=== PATIENT | female | born 1975 | race Hispanic/Latino ===

== ENCOUNTER 2022-06-21 08:04 | Emergency (ER) | payer OTHER, SELFPAY ==
--- NOTE | 2022-06-21 08:15 | ED.URI ---
HPI - URI/Sore Throat General Chief Complaint: Upper Respiratory Infection Stated Complaint: Sore throat, coughing, sneezing Time Seen by Provider: 06/21/22 08:19 Source: patient and RN notes reviewed Mode of arrival: ambulatory Limitations: no limitations History of Present Illness HPI Narrative: 47 y/o female presented for c/o dry cough, sore throat, sinus drainage for one week. Temp at home 2 days ago 101. She did not test for covid. Taking multiple otc meds for symptoms states I have been drinking them. BP is elevated upon arrival, pt states she took her home bp meds. Denies chest pain, palpitations, dizziness, shortness of breath, wheezing, nausea, vomiting or fatigue. Denies sick contacts. MD elicited complaint: cough Related Data Home Medications Medication Instructions Recorded Confirmed amlodipine 10 mg tablet 10 mg DAILY 06/21/22 06/21/22 aspirin 81 mg chewable tablet 81 mg DAILY 06/21/22 06/21/22 calcium carbonate 600 mg-vitamin 1 tablet PO DAILY 06/21/22 06/21/22 D3 10 mcg (400 unit) tablet clonidine HCl 0.2 mg tablet 0.2 mg DAILY 06/21/22 06/21/22 dulaglutide 1.5 mg/0.5 mL mg subcut WEEKLY 06/21/22 subcutaneous pen injector (Trulicity) hydralazine 25 mg tablet 25 mg DAILY 06/21/22 06/21/22 metformin 1,000 mg tablet 1,000 mg DAILY 06/21/22 06/21/22 metoprolol succinate 25 mg 25 mg PO DAILY 06/21/22 06/21/22 tablet,extended release 24 hr multivitamin with folic acid 400 1 tablet PO DAILY 06/21/22 06/21/22 mcg tablet (Daily-Katelyn (with folic acid)) nystatin 100,000 unit/gram topical topical DAILY 06/21/22 cream potassium chloride 10 mEq 10 meq PO DAILY 06/21/22 06/21/22 tablet,extended release Allergies Allergy/AdvReac Type Severity Reaction Status Date / Time No Known Allergies Allergy Unverified 05/19/18 21:34 Review of Systems Review of Systems: CONSTITUTIONAL: Endorses malaise, chills, fever EYES: Denies visual changes, redness, or discharge ENT: Reports rhinorrhea, congestion, sinus pain, sore throat CARDIOVASCULAR: Denies chest pain, palpitations, edema RESPIRATORY: Reports cough, post nasal drainage. Denies dyspnea GASTROINTESTINAL: Denies abdominal pain, nausea, vomiting, diarrhea SKIN: Denies rash or itching MUSCULOSKELETAL: denies myalgia Exam Narrative: GENERAL: Ill-appearing, nontoxic EYES: conjunctivae clear ENT: Mucous membranes moist. TM pearly dunaway with dull light reflex bilaterally; no tragal tenderness. Oropharynx erythematous without lesions or exudate, no drooling, no hoarseness, no trismus, uvula midline. CHEST: Clear to auscultation, breath sounds equal. No wheezing, rhonchi, rales, or stridor. No respiratory distress, speaks in full sentences. HEART: Regular rate and rhythm. No murmur heard. SKIN: Warm, dry, no rash. NEURO: Alert and oriented x3. PSYCH: Normal mood and affect Course Course Emergency Course: Patient is aware of diagnosis, understands and agrees to treatment plan. Anticipatory guidance given. Patient agrees to follow-up as directed and is aware of reasons to seek care at the emergency department. Portions of this record may have been created with voice recognition software Level of Care: Express Care Visit Vital Signs Vital signs: Vital Signs Temperature 97.7 F 06/21/22 08:16 Pulse Rate 79 06/21/22 08:16 Respiratory Rate 18 06/21/22 08:16 Blood Pressure 212/98 H 06/21/22 08:16 Pulse Oximetry 100 06/21/22 08:16 Oxygen Delivery Room Air 06/21/22 08:16 Temperature 97.7 F 06/21/22 08:16 Pulse Rate 79 06/21/22 08:16 Respiratory Rate 18 06/21/22 08:16 Blood Pressure 216/105 H 06/21/22 08:55 Pulse Oximetry 100 06/21/22 08:16 Oxygen Delivery Room Air 06/21/22 08:16 reviewed MDM - URI/Sore Throat MDM Narrative Medical decision making narrative: Covid positive, result reviewed with pt. advised supportive measures for covid and signs/symptoms to go to the ER. BP rechecked and remains latoya
[2022-06-21 08:16] VITALS: BP 212/98; PULSE 79; RESP 18; TEMP 36.5; O2SAT 100
[2022-06-21 08:55] VITALS: BP 216/105
--- NOTE | 2022-06-21 08:55 | PC.NURSE ---
Rechecked pt's BP and it remains high. [facility] [employer] aware and is speaking with pt. Pt states that she has a BP cuff at home and will check her BP again and then follow up with her PCP if needed since she is asymptomatic.
== END 2022-06-21 09:04 | disposition home or self-care (01) ==
PROVIDERS: Emergency Provider Nurse Practitioner Family
DX: U07.1 COVID-19 (principal)
CPT/HCPCS: 87426; 99213; C9803; G0463

== ENCOUNTER 2022-12-23 16:42 | Emergency (ER) | payer OTHER, SELFPAY ==
--- NOTE | 2022-12-23 16:49 | ED.SKABFB ---
HPI - Skin/Abscess/Foreign Bdy General Chief complaint: Skin/Abscess/Foreign Body Stated complaint: boil on back Source: patient and RN notes reviewed History of Present Illness HPI narrative: 47 yo F presents to urgent care with complaints of a boil on her back. Pt states she felt a pimple in the area this past Sunday and when she squeezed it, pus came out. Pt states she now has a bigger bump in the area that is painful. Denies any fevers, chills, numbness, tingling, or vomiting. Pt also noted to be hypertensive in clinic. Pt reports chronic HTN that she is still being evaluated for. Pt states she takes her daily BP meds without fail and continues to be high. Pt states she is scheduled to have tests done this week on her liver to evaluate other possible causes to her HTN. Denies any chest pain, SOB, dizziness, CHANCE, or visual disturbance. Related Data Home Medications Medication Instructions Recorded Confirmed amlodipine 10 mg tablet 10 mg DAILY 06/21/22 12/23/22 aspirin 81 mg chewable tablet 81 mg DAILY 06/21/22 12/23/22 calcium carbonate 600 mg-vitamin 1 tablet PO DAILY 06/21/22 12/23/22 D3 10 mcg (400 unit) tablet clonidine HCl 0.2 mg tablet 0.2 mg DAILY 06/21/22 12/23/22 dulaglutide 1.5 mg/0.5 mL 1.5 mg subcut WEEKLY 06/21/22 12/23/22 subcutaneous pen injector (Trulicity) metformin 1,000 mg tablet 1,000 mg DAILY 06/21/22 12/23/22 multivitamin with folic acid 400 1 tablet PO DAILY 06/21/22 12/23/22 mcg tablet (Daily-Katelyn (with folic acid)) nystatin 100,000 unit/gram topical 1 applic topical DAILY 06/21/22 12/23/22 cream potassium chloride 10 mEq 10 meq PO DAILY 06/21/22 12/23/22 tablet,extended release atorvastatin 80 mg tablet 80 mg PO DAILY 12/23/22 12/23/22 clopidogrel 75 mg tablet 75 mg PO DAILY 12/23/22 12/23/22 furosemide 40 mg tablet 40 mg PO DAILY 12/23/22 12/23/22 hydralazine 50 mg tablet 50 mg PO DAILY 12/23/22 12/23/22 losartan 100 mg tablet 100 mg PO DAILY 12/23/22 12/23/22 magnesium oxide 400 mg (241.3 mg 400 mg PO DAILY 12/23/22 12/23/22 magnesium) tablet metoprolol succinate 50 mg 50 mg PO DAILY 12/23/22 12/23/22 tablet,extended release 24 hr triamterene 37.5 1 cap PO DAILY 12/23/22 12/23/22 mg-hydrochlorothiazide 25 mg capsule Allergies Allergy/AdvReac Type Severity Reaction Status Date / Time No Known Allergies Allergy Verified 12/23/22 16:48 Review of Systems Review of Systems: CONSTITUTIONAL: Denies fever, chills, or sweats. EYES: Denies visual changes, redness, or discharge. ENT: Denies otalgia and sore throat CARDIOVASCULAR: Denies chest pain, palpitations, or edema. RESPIRATORY: Denies cough or dyspnea. GASTROINTESTINAL: Denies abdominal pain, nausea, vomiting, or diarrhea. GENITOURINARY: Denies dysuria or hematuria. SKIN: Reports a boil on her back. MUSCULOSKELETAL: Denies back pain, joint pain, or myalgia. NEUROLOGIC: Denies headache, numbness, or weakness. PMFSH Comments At the time of my signature, I reviewed and agree with the nursing past medical, surgical, social, and family history. There is no relevant family history pertinent to the patient complaint. Exam Narrative: GENERAL: This is a well-nourished, well-developed patient, in no apparent distress. HEAD: normocephalic, atraumatic. EYES: PERRL. Sclera clear/white. Vision is grossly intact. EARS: External ears normal, auditory canals clear and without drainage, TMs normal without perforation. Hearing grossly intact. NOSE: External nose normal with no obvious nasal discharge, nares without redness, no rhinorrhea. THROAT: Mucous membranes moist, posterior pharynx clear. NECK: Neck supple, non-tender without lymphadenopathy, masses or thyromegaly. CARDIOVASCULAR: Regular rate and rhythm without murmurs, gallops, or rubs. RESPIRATORY: Clear to auscultation. Breath sounds equal bilaterally. No wheezes, rales, or rhonchi. GASTROINTESTINAL: Abdomen soft, non-tender, nondistended. Bowel sounds a
[2022-12-23 16:52] VITALS: BP 193/102; PULSE 86; RESP 16; TEMP 37.3; O2SAT 98
[2022-12-23 16:55] VITALS: BP 193/102; PULSE 86; RESP 16; TEMP 37.3; O2SAT 98
== END 2022-12-23 17:15 | disposition home or self-care (01) ==
PROVIDERS: Emergency Provider Nurse Practitioner Family
DX: L02.212 Cutaneous abscess of back [any part, except buttock and flank] (principal); I10 Essential (primary) hypertension; E78.00 Pure hypercholesterolemia, unspecified; E11.9 Type 2 diabetes mellitus without complications; I25.10 Atherosclerotic heart disease of native coronary artery without angina pectoris; Z95.5 Presence of coronary angioplasty implant and graft; Z79.82 Long term (current) use of aspirin
CPT/HCPCS: 99213; G0463

== ENCOUNTER 2023-12-07 09:52 | Emergency (ER) | payer OTHER, SELFPAY ==
[2023-12-07 10:05] VITALS: BP 264/122; PULSE 105; RESP 20; TEMP 37.3; O2SAT 100
[2023-12-07 10:06] VITALS: BP 233/122; PULSE 105; RESP 16; TEMP 37.3; O2SAT 100
[2023-12-07 10:15] VITALS: BP 260/140; PULSE 105; RESP 20
--- NOTE | 2023-12-07 10:15 | ED.URI ---
HPI - URI/Sore Throat General Chief Complaint: Upper Respiratory Infection Stated Complaint: runny nosee throat hurts Time Seen by Provider: 12/07/23 10:00 Source: patient Mode of arrival: ambulatory Limitations: no limitations History of Present Illness HPI Narrative: 48-year-old female with history of hypertension presents with complaint of sinus congestion and pressure for 2 days. No other symptoms today. Patient's blood pressure elevated in triage. Denies chest pain and shortness of breath. Has not missed any doses of her blood pressure medications. All systems reviewed and negative except as noted above. Related Data Home Medications Medication Instructions Recorded Confirmed amlodipine 10 mg tablet 10 mg DAILY 06/21/22 12/23/22 aspirin 81 mg chewable tablet 81 mg DAILY 06/21/22 12/23/22 calcium carbonate 600 mg-vitamin 1 tablet PO DAILY 06/21/22 12/23/22 D3 10 mcg (400 unit) tablet clonidine HCl 0.2 mg tablet 0.2 mg DAILY 06/21/22 12/23/22 dulaglutide 1.5 mg/0.5 mL 1.5 mg subcut WEEKLY 06/21/22 12/23/22 subcutaneous pen injector (Trulicity) metformin 1,000 mg tablet 1,000 mg DAILY 06/21/22 12/23/22 multivitamin with folic acid 400 1 tablet PO DAILY 06/21/22 12/23/22 mcg tablet (Daily-Katelyn (with folic acid)) nystatin 100,000 unit/gram topical 1 applic topical DAILY 06/21/22 12/23/22 cream potassium chloride 10 mEq 10 meq PO DAILY 06/21/22 12/23/22 tablet,extended release atorvastatin 80 mg tablet 80 mg PO DAILY 12/23/22 12/23/22 clopidogrel 75 mg tablet 75 mg PO DAILY 12/23/22 12/23/22 furosemide 40 mg tablet 40 mg PO DAILY 12/23/22 12/23/22 hydralazine 50 mg tablet 50 mg PO DAILY 12/23/22 12/23/22 losartan 100 mg tablet 100 mg PO DAILY 12/23/22 12/23/22 magnesium oxide 400 mg (241.3 mg 400 mg PO DAILY 12/23/22 12/23/22 magnesium) tablet metoprolol succinate 50 mg 50 mg PO DAILY 12/23/22 12/23/22 tablet,extended release 24 hr triamterene 37.5 1 cap PO DAILY 12/23/22 12/23/22 mg-hydrochlorothiazide 25 mg capsule Allergies Allergy/AdvReac Type Severity Reaction Status Date / Time No Known Allergies Allergy Verified 12/07/23 10:12 Review of Systems Review of Systems: CONSTITUTIONAL: Denies fever, chills, or sweats. EYES: Denies visual changes, redness, or discharge. ENT: Reports rhinorrhea, congestion, sinus pressure. Denies sore throat, or otalgia. CARDIOVASCULAR: Denies chest pain, palpitations, or edema. RESPIRATORY: Denies cough or dyspnea. GASTROINTESTINAL: Denies abdominal pain, nausea, vomiting, or diarrhea. GENITOURINARY: Denies dysuria or hematuria. SKIN: Denies rash or itching. MUSCULOSKELETAL: Denies back pain, joint pain, or myalgia. NEUROLOGIC: Denies headache, numbness, or weakness. PSYCHIATRIC: Denies anxiety or depression. All other systems reviewed are negative, except as documented in HPI. PMFSH Comments At time of signature, agree with nursing past medical, surgical, social and family history. There is no relevant family history pertinent to the presenting complaint. Exam Narrative: GENERAL: This is a well-nourished, well-developed patient, in no apparent distress. HEAD: normocephalic, atraumatic. EYES: PERRL. Sclera clear/white. Vision is grossly intact. EARS: External ears normal NOSE: External nose normal NECK: Neck supple, non-tender without lymphadenopathy, masses or thyromegaly. right carotid visibly pulsating CARDIOVASCULAR: tachycardic without murmurs, gallops, or rubs. RESPIRATORY: Clear to auscultation. Breath sounds equal bilaterally. No wheezes, rales, or rhonchi. SKIN: warm, Dry, intact with no suspicious lesions or rash, good texture and turgor. NEURO: awake, alert, and oriented to person, place and time. There were no obvious focal neurologic abnormalities. EXTREMITIES: No joint tenderness, effusion, or edema noted. Course Course Level of Care: Express Care Visit Vital Signs Vital signs: Vital Signs
== END 2023-12-07 10:15 | disposition short-term general hospital (02) ==
PROVIDERS: Emergency Provider Nurse Practitioner Family
DX: I10 Essential (primary) hypertension (principal); E78.00 Pure hypercholesterolemia, unspecified; E11.9 Type 2 diabetes mellitus without complications; Z79.84 Long term (current) use of oral hypoglycemic drugs; I25.10 Atherosclerotic heart disease of native coronary artery without angina pectoris; Z95.5 Presence of coronary angioplasty implant and graft
CPT/HCPCS: 99212; G0463